=== PATIENT | male | born 1940 | race Caucasian/White ===

== ENCOUNTER 2018-08-28 06:51 | Day surgery (SDC) | payer MEDICARE, SELFPAY ==
[2018-07-19 14:56] VITALS: BMI 40.6
[2018-08-18 10:27] VITALS: BP 147/91; PULSE 73; RESP 18; TEMP 37.1; O2SAT 97; BMI 40.1
--- NOTE | 2018-08-18 10:57 | RAD_ITS ---
STUDY: X-RAY CHEST REASON FOR EXAM: Male, 77 years old. Preoperative evaluation. TECHNIQUE: PA and lateral views of the chest. COMPARISON: None. FINDINGS: Mild degree of increased linear markings at the left lung base with blunting of the left costophrenic angle. This may represent either linear atelectasis and/or early infiltrate. Normal size heart. Normal mediastinum and cahsidy. Normal visualized pulmonary arteries. There is atherosclerotic tortuosity of the aortic arch and descending thoracic aorta. There are diffuse degenerative changes of the visualized thoracic spine. Normal visualized ribs, clavicles, and shoulders. There is no demonstrated abnormality of the visualized soft tissue structures of the upper abdomen. RAD/Chest PA and Lateral IMPRESSION: Increased linear markings at the left lung base with blunting of the left costophrenic angle. This may represent underlying atelectasis and/or early infiltrate. Electronically Signed: Tereso Lockhart MD at 11:48 EST , Service support ,
[2018-08-18 11:28] LABS: Hematocrit 39.2 % (40-54); Hemoglobin 12.9 g/dl (13.0-16.5); Mean Corp Hgb Conc 32.9 g/gl (32-36); Mean Corpuscular Hgb 28.8 pg (27.0-32.0); Mean Corpuscular Volume 87.5 fL (80-94); Mean Platelet Vol. 9.2 fl (6.2-12.0); Platelet Count 170 K/mm3 (150-450); RBC Distribution Width CV 13.6 % (11.6-14.6); RBC Distribution Width SD 43.3 fl (35.1-43.9); Red Blood Count 4.48 M/mm3 (4.6-6.2); White Blood Count 9.2 K/mm3 (4.4-11.0)
[2018-08-18 11:31] LABS: Scan Indicated on CBC? Y/N NO
[2018-08-18 11:52] LABS: ALB/GLOB Ratio 0.8 RATIO (0.9-2.4); AST(SGOT) 19 U/L (15-37); Alanine Aminotransfer ALT/SGPT 24 U/L (16-61); Albumin, Serum 3.4 g/dL (3.2-5.0); Alkaline Phosphatase 104 U/L (45-117); Anion Gap 10 (5-15); BUN 16 mg/dL (7-18); BUN/Creat Ratio 12.3 RATIO (10-20); Calcium,Total 9.2 mg/dL (8.5-10.1); Chloride 106 mmol/L (98-107); EST Glomerular Filtration Rate 57 mL/min (>60); Est Glom Filt Rate - Afr Amer 69 mL/min (>60); Estimated Creatinine Clearance 45.31 ml/min; Globulin 4.2 g/dL (2.2-4.2); Glucose 104 mg/dL (74-106); Potassium 3.9 mmol/L (3.5-5.1); Protein, Total 7.6 g/dL (6.4-8.2); Sodium Level 141 mmol/L (136-145)
[2018-08-28] VITALS (7 sets, daily range): BP systolic 131–141; BP diastolic 71–91; PULSE 71–88; RESP 16–18; TEMP 36.3–37.3; O2SAT 92–100; BMI 40.5
--- NOTE | 2018-08-28 07:38 | DCINST_ITS ---
You will use the following diet at home:: Regular Discharge Activity: Return to Normal Activity, - - No Noseblowing Additional Activity Instructions:: Start saline irrigation 3x/day on 08/29/18. Allergies/Adverse Reactions: Allergies No Known Allergies Allergy (Verified 08/18/18 10:10) Medications to take at Discharge Atorvastatin Calcium 20 mg PO DAILY 02/15/17 amlodipine 10 mg tablet 10 mg PO DAILY 90 Days #90 tab 07/19/18 finasteride 5 mg tablet 5 mg PO DAILY 90 Days #90 tab 07/19/18 losartan 50 mg tablet 50 mg PO DAILY 90 Days #90 tab 07/19/18 tamsulosin 0.4 mg capsule 0.4 mg PO DAILY 90 Days #90 cap 07/19/18 Albuterol Inhaler [Ventolin Hfa (SP)] 1 - 2 puff INHALATION Q4H PRN PRN 08/18/18 Aspirin E.C. [Ecotrin] 81 mg PO DAILY@0800 08/18/18 Fluticasone/Salmeterol [Advair 250-50 Diskus] 1 puff IH BID 08/18/18 Primary Care Physician: Camryn Gutierrez NP-C [Primary Care Provider] - Test Results: Test results from this visit will be discussed in further detail at your follow- up appointment, if applicable.
--- NOTE | 2018-08-28 08:35 | SEP_PTH ---
PATIENT: OSVALDO CABRAL LOC: [facility] U#:[id number] AGE/SX: 77/M ROOM: RE08/28/[address]: Dr. Tito Kay MD : [id number] BED: DIS: 08/28/2018 SPEC #: [id number] RECD: 08/28/18 12:28 STATUS: ISIS BURAK #: [id number] AMNA: 08/28/18 08:[address]: Tito Kay DEPT: SURGICAL PATHOLOGY RECD BY: Suleman Johnston ENTERED: 08/28/18 13:12 SP TYPE: SEPTUM OTHR DR: Camryn Gutierrez, NIGHT COORDINATOR-C Tissues: A - Nasal septum, NOS B - Nasal turbinate, NOS Procedures: Decalcification bone/plaque Surgery Specimen Level III HEADER OPERATION: Septoplasty, anterior turbinates, bilateral lateral implants PRE-OP DIAGNOSIS: Deviated nasal septum, nasal congestion, hypertrophy of nasal turbinates TISSUE SUBMITTED: A - Septum, B - Turbinate contents MICROSCOPIC DIAGNOSIS A. Septum: Fragments of bone and cartilage, clinically deviated nasal septum. B. Turbinate contents: Fragments of fibrous tissue, detached and unoriented fragments of benign epithelium and blood clots. ANGELINA:efren 09/01/18 MICROSCOPIC DESCRIPTION Slides are reviewed. GROSS DESCRIPTION A - Received in fixative is one container labeled with the patient's name and designated septum. The specimen consists of multiple irregular fragments of light armenta-pink bone and cartilage that in aggregate measure 2.5 x 2 x 0.2 cm. The specimen is totally submitted in one cassette after decalcification. B - Received in fixative is one container labeled with the patient's name and designated turbinate contents. The specimen consists of irregular fragments of reddish-armenta gritty tissue measuring 1.2 x 0.6 x 0.3 cm. The specimen is submitted in its entirety in one cassette after decalcification. / AM:efren 08/28/18 TC:5 CPT: 16662 x2, 52069 x2
[2018-08-28] MEDS: Oxymetazoline 0.05% 1 SPRAY SPRAY.BTL 15 SPRAY (08:55)
[2018-08-28] MEDS: Mupirocin Ointment 22gm Tube 1 APPLIC (09:07)
--- NOTE | 2018-08-28 10:04 | PCM.OPRPT ---
Report of Operation Date of Procedure: 08/28/18 Pre-Operative Diagnosis: nasal airway obstruction. deviated septum. external nasal valve collapse Post-Operative Diagnosis: same Surgery/Procedure Performed:: Septoplasty. Bilateral reconstruction of lateral nasal wall (external valve) with latera implant. Bilateral submucous resection inferior turbinates Type of Anesthesia:: General Anesthesiologist: Bassem Malone Specimen's removed: septum. turbinate contents Estimated Blood Loss (mL): minimal Description of Procedure: The patient was taken to the OR on 08/28/18. He was placed in the supine position on the OR table. He was given sufficient general endotracheal anesthesia. The head of bed was elevated 30 degrees. The nose and face were prepped and draped steriley. I injected 1% lidocaine with epinephrine (1:[id number]) into the septum, nasal floor, columella, and external nasal valve area. Vibrissae were trimmed with scissors. I then made a hemitransfixtion incision on the right with a 15 blade. Sharp dissection was used to establish a plane on the left mucopericondrium. The mucoperichondrium was elevated off of the septum with a freer elevator. In this way, an anterior and posterior tunnel was created. The francisco cartilaginous junction was and a posterior tunnel was created on the right side by elevating the mucoperichondrium off of the septum. Deviated portions of the francisco septum were removed with open Eulogio-Larry forceps. The cartilage was removed from the crest. The maxillary crest was taken down using a hammer and chisel. I then scored the remaining quandrangular cartilage with a 15 blade. Suction cautery was used for hemostasis on the maxillary crest. Afrin and estefani were used for hemostasis. Next, I made a stab incision at the anterior aspect of the right inferior turbinate at the mucocutaneous junction with a 15 blade. I then submucosally dissected a plane with a [place] elevator. Submucous resection was carried out using a microdebrider. Afrin and estefani were used for hemostasis and the incision was closed with 4-0 chromic. I then made a stab incision at the anterior aspect of left the inferior turbinate at the mucocutaneous junction with a 15 blade. I then submucosally dissected a plane with a Jacobo elevator. Submucous resection was carried out using a microdebrider. Afrin and estefani were used for hemostasis and the incision was closed with 4-0 chromic. I then loaded the Latera implant per the instructions. I outlined the superior and inferior position on the right taking care to keep the inferior most portion above the alar crease. I then dissected the latera needle lateral to the lower lateral cartilage and dissected superiorly on the upper lateral cartilage and bone until in the correct position. The implant was deployed. I then held the implant while the needle was slowly removed. I re inspected the injection site and there was no implant visible. I then loaded the Latera implant per the instructions. I outlined the superior and inferior position on the left taking care to keep the inferior most portion above the alar crease. I then dissected the latera needle lateral to the lower lateral cartilage and dissected superiorly on the upper lateral cartilage and bone until in the correct position. The implant was deployed. I then held the implant while the needle was slowly removed. I re inspected the injection site and there was no implant visible. I then reassured that I had excellent hemostasis. The hemitransfixtion incision was closed with interrupted 4-0 chromic. Mesa nasal splints were applied to each side of the septum and sewn through and through with 3-0 silk. The procedure was terminated. He was awoken and brought to the recovery room in stable condition. Blood loss minimal, replacement none. Sponge, needle and instrument count were correct at the end of the procedure. Grafts/Implants Used: bilateral latera
== END 2018-08-28 11:36 | disposition home or self-care (01) ==
LOC: SDC 06:52 → AC 06:52
PROVIDERS: Family Provider Nurse Practitioner Adult Health; PCP Nurse Practitioner Adult Health; Referring Provider Otolaryngology; Visit Provider Otolaryngology
PROC: (CPT 30520; principal; 2018-08-28 08:20)
DX: J34.2 Deviated nasal septum (principal); J34.3 Hypertrophy of nasal turbinates; J34.89 Other specified disorders of nose and nasal sinuses; I10 Essential (primary) hypertension; E78.00 Pure hypercholesterolemia, unspecified; N40.0 Benign prostatic hyperplasia without lower urinary tract symptoms; R73.03 Prediabetes; Z86.718 Personal history of other venous thrombosis and embolism; Z79.82 Long term (current) use of aspirin; Z79.899 Other long term (current) drug therapy; Z87.891 Personal history of nicotine dependence
CPT/HCPCS: 00160; 30140; 30465; 30520; 36415; 71046; 80053; 85027; 88304; 88311; J7120; J2405

== ENCOUNTER 2018-08-30 18:23 | Observation (INO) | payer MEDICARE, SELFPAY ==
[2018-08-28 07:09] VITALS: BMI 40.5
[2018-08-30] VITALS (7 sets, daily range): BP systolic 115–147; BP diastolic 62–84; PULSE 76–84; RESP 12–24; TEMP 30.9–36.7; O2SAT 95–96; BMI 40.6; BMI 41.3; BMI 41.4
--- NOTE | 2018-08-30 18:39 | EKG12_ITS ---
Test Reason : SOB Blood Pressure : / mmHG Vent. Rate : 071 BPM Atrial Rate : 071 BPM P-R Int : 190 ms QRS Dur : 090 ms QT Int : 400 ms P-R-T Axes : 011 -04 021 degrees QTc Int : 434 ms Normal sinus rhythm Inferior infarct , age undetermined Abnormal ECG Confirmed by ROCHELLE RICO, REGIS ([id number]), editor index MARILYNN ESCOBAR ([id number]) on 09/04/2018 10:09:34 AM Referred By: Dereck Sorenson Confirmed By:REGIS BYRD MD
[2018-08-30] MEDS: Ipratropium/Albuterol Sulfate 3 ML AMPUL.NEB INHALATION (18:55)
[2018-08-30] MEDS: Albuterol 2.5 MG/3 ML VIAL.NEB. INHALATION ×3 (18:55→19:12)
[2018-08-30 19:08] LABS: Absolute Lymphocyte Count 1.31 X10^3/ul (0.83-4.51); Absolute Neutrophil Count 5.3 X10^3/uL (2.0-7.7); Basophil# 0.06 X10^3/uL; Basophil% 0.8 % (0-1); Eosinophil# 0.38 X10^3/uL; Eosinophils% 4.9 % (0-5); Hematocrit 36.7 % (40-54); Hemoglobin 11.8 g/dl (13.0-16.5); Lymphocyte # 1.31 X10^3/ul (4.0); Lymphocyte % 16.8 % (19-41); Mean Corp Hgb Conc 32.2 g/gl (32-36); Mean Corpuscular Hgb 28.4 pg (27.0-32.0); Mean Corpuscular Volume 88.4 fL (80-94); Mean Platelet Vol. 8.7 fl (6.2-12.0); Monocyte% 7.7 % (0-10); Neutrophil # 5.34 X10^3/uL (2.7-7.7); Neutrophil % 68.1 % (47-70); Platelet Count 149 K/mm3 (150-450); RBC Distribution Width CV 13.8 % (11.6-14.6); RBC Distribution Width SD 44.8 fl (35.1-43.9); Red Blood Count 4.15 M/mm3 (4.6-6.2); White Blood Count 7.8 K/mm3 (4.4-11.0)
--- NOTE | 2018-08-30 19:10 | ED.VISSUMM ---
- ER Visit Summary Date of Service: 08/30/18 Chief Complaint: Shortness of breath History of Present Illness: The patient is a 77 M who is postop day 2 from nasal surgery with Dr. Marie. Patient has a history of COPD. For this he takes Advair and has a rescue inhaler of ProAir air. Family states he rarely has to use his rescue inhaler. Starting today has been increasingly short of breath. They have heard wheezing. He notes a slight cough. No change in the swelling of his ankles. No fevers. Patient does not wear oxygen at home. He does not have nebulizer machine. Physical Examination: Afebrile vital signs are stable Gen: Well-nourished well-developed obese Head: Normocephalic atraumatic Eyes: Perrl EOMI ENT: TMs clear postoperative nasal changes moist mucous membranes Neck: Supple no lymphadenopathy no JVD nontender CVS: Regular rate rhythm no murmurs normal S1-S2 Respiratory: Patient has conversational dyspnea. He has significantly diminished breath sounds bilaterally. There is faint expiratory wheezing. Chest nontender Abdomen: Soft nontender nondistended normal bowel sounds no masses Back: Nontender Extremity: Nontender 2+ symmetric lower extremity edema Skin: Normal color no rash Neuro: alert orientated ?3 CN II-XII intact normal strength sensation Psych: Normal affect normal mood Test Results: [] Emergency Department Course and Treatment: [] Impression: [] This note was generated with [employer] dictation software. It may contain incorrect words, spelling, and punctuation that were not noted in review of the chart prior to signing ED Disposition - Plan for ED Patient: Referrals: Camryn Gutierrez NP-C [Primary Care Provider] -
[2018-08-30 19:11] LABS: POSITIVE COUNT NO; POSITIVE DIFFERENTIAL NO; POSITIVE MORPHOLOGY NO
[2018-08-30 19:20] LABS: Anion Gap 7 (5-15); BUN 25 mg/dL (7-18); BUN/Creat Ratio 18.1 RATIO (10-20); Calcium,Total 8.4 mg/dL (8.5-10.1); Chloride 108 mmol/L (98-107); Creatinine, Serum 1.38 mg/dL (0.70-1.30); EST Glomerular Filtration Rate 53 mL/min (>60); Est Glom Filt Rate - Afr Amer 64 mL/min (>60); Estimated Creatinine Clearance 42.68 ml/min; Glucose 167 mg/dL (74-106); Potassium 3.8 mmol/L (3.5-5.1); Sodium Level 140 mmol/L (136-145)
[2018-08-30] MEDS: MethylPREDNISolone 125 MG/2 ML Vial IV (19:22)
--- NOTE | 2018-08-30 19:35 | RAD_ITS ---
STUDY: X-RAY CHEST REASON FOR EXAM: Male, 77 years old. Shortness of breath. TECHNIQUE: PA and lateral views of the chest. COMPARISON: August 18, 2018. FINDINGS: Telemetry wires overlie the chest. The lungs are clear and expanded. There is no demonstrated pleural abnormality. Normal size heart. Normal mediastinum and chasidy. Normal visualized pulmonary arteries. Normal visualized aortic arch and descending thoracic aorta. Normal visualized thoracic spine. Normal visualized ribs, clavicles, and shoulders. There is no demonstrated abnormality of the visualized soft tissue structures of the upper abdomen. RAD/Chest PA and Lateral IMPRESSION: No acute cardiopulmonary disease. Electronically Signed: Jluis Go DO at 20:03 EST Tel [phone], Service support ,
--- NOTE | 2018-08-30 20:45 | ED.RN ---
PATIENT WAS TOLD BY THE DR. MIN THAT PATIENT COULD TAKE HIS OWN SECOND DOSE OF HIS ANTI BIOTIC (AMOXICILLIN) HIS DAUGHTER WAS GOING TO GIVE IT TO HIM.
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
[2018-08-31] VITALS (8 sets, daily range): BP systolic 136–156; BP diastolic 73–84; PULSE 72–96; RESP 18–22; TEMP 36.7–36.9; O2SAT 94–96
[2018-08-31 06:25] LABS: Anion Gap 10 (5-15); BUN 24 mg/dL (7-18); BUN/Creat Ratio 16.6 RATIO (10-20); Calcium,Total 8.4 mg/dL (8.5-10.1); Chloride 107 mmol/L (98-107); Creatinine, Serum 1.45 mg/dL (0.70-1.30); EST Glomerular Filtration Rate 50 mL/min (>60); Est Glom Filt Rate - Afr Amer 60 mL/min (>60); Estimated Creatinine Clearance 40.62 ml/min; Glucose 174 mg/dL (74-106); Potassium 4.3 mmol/L (3.5-5.1); Sodium Level 138 mmol/L (136-145)
[2018-08-31 06:33] LABS: Absolute Lymphocyte Count 0.43 X10^3/ul (0.83-4.51); Absolute Neutrophil Count 7.2 X10^3/uL (2.0-7.7); Basophil# 0.02 X10^3/uL; Basophil% 0.3 % (0-1); Eosinophil# 0.01 X10^3/uL; Eosinophils% 0.1 % (0-5); Hemoglobin 11.8 g/dl (13.0-16.5); Lymphocyte # 0.43 X10^3/ul (4.0); Lymphocyte % 5.4 % (19-41); Mean Corp Hgb Conc 32.8 g/gl (32-36); Mean Corpuscular Hgb 29.1 pg (27.0-32.0); Mean Corpuscular Volume 88.9 fL (80-94); Mean Platelet Vol. 9.7 fl (6.2-12.0); Monocyte# 0.12 X10^3/uL; Monocyte% 1.5 % (0-10); Neutrophil # 7.24 X10^3/uL (2.7-7.7); Neutrophil % 90.7 % (47-70); Platelet Count 180 K/mm3 (150-450); RBC Distribution Width CV 13.4 % (11.6-14.6); RBC Distribution Width SD 42.7 fl (35.1-43.9); Red Blood Count 4.05 M/mm3 (4.6-6.2)
[2018-08-31 06:36] LABS: Differential Indicated SCAN CRITERIA MET; POSITIVE COUNT YES; POSITIVE DIFFERENTIAL YES; POSITIVE MORPHOLOGY YES
[2018-08-31] MEDS: Ipratropium/Albuterol Sulfate 3 ML AMPUL.NEB INHALATION ×3 (07:20→14:45)
[2018-08-31] MEDS: Tamsulosin HCl 0.4 MG Capsule PO (08:04)
[2018-08-31] MEDS: Finasteride 5 MG Tablet PO (08:04)
[2018-08-31] MEDS: amLODIPine 10 MG Tablet PO (08:04)
[2018-08-31] MEDS: Losartan Potassium 50 MG Tablet PO (08:04)
[2018-08-31] MEDS: 0.9% NaCl Peripheral Flush Adult/Peds IV ×3 (08:08→21:46)
[2018-08-31] MEDS: AMOXICILLIN 875 MG TABLET PO ×2 (10:59→21:42)
[2018-08-31 12:35] LABS: Pathologist Review Reviewed
--- NOTE | 2018-08-31 13:42 | PCM.PROGNOTE ---
<Roman Hughes - Last Filed: 08/31/18 13:42> Patient Problems: Active and Suspected Problems (Last Reviewed 08/30/18 @ 23:17 by Dereck Sorenson MD) COPD with exacerbation (Acute) Subjective: Pt feels he is improving. He has less SOB, no cough, no fever. He has ambulated without oxygen and without desat. Still some exertional dyspnea. He has a mild tremor in his right hand but states this is not new. - Physical Exam General: Alert, Oriented x3, Cooperative HEENT: Atraumatic, PERRLA, EOMI, Normocephalic Neck: Supple, No JVD, Negative Carotid Bruits Lungs: Diminished Cardiovascular: Regular rate, No murmurs Abdomen: Bowel Sounds Present, Soft, Non Tender Extremities: No edema, Capillary Refill Less than 3 Seconds Skin: No rashes, No breakdown Musculoskeletal: No Tenderness to Palpation of Joints or Extremities Neurological: Cranial nerves II-XII grossly intact Psych/Mental Status: Normal Affect, Appropriate, Alert and oriented to time, place, person, mood and affect Vital Signs Temp Pulse Resp BP Pulse Ox 98.0 F 94 18 156/84 H 96 08/31/18 08:00 08/31/18 11:07 08/31/18 11:07 08/31/18 08:00 08/31/18 08:00 Oxygen Delivery Method Room Air Weight: 272 lb 3 oz Body Mass Index (BMI) 41.3 Intake and Output for Last 24 Hours 08/29/18 08/30/18 08/31/18 23:59 23:59 23:59 Intake Total 1200 / 1200 Output Total 1100 / 1100 Balance 100 / 100 Laboratory Tests Past 24 Hrs 08/30/18 08/30/18 08/31/18 18:55 18:55 05:24 WBC 7.8 8.0 RBC 4.15 L 4.05 L Hgb 11.8 L 11.8 L Hct 36.7 L 36.0 L MCV 88.4 88.9 MCH 28.4 29.1 MCHC 32.2 32.8 RDW 13.8 13.4 RDW Differential 44.8 H 42.7 Plt Count 149 L 180 MPV 8.7 9.7 Immature Gran % (Auto) 1.700 H 2.000 H Neut % (Auto) 68.1 90.7 H Lymph % (Auto) 16.8 L 5.4 L Charles % (Auto) 7.7 1.5 Eos % (Auto) 4.9 0.1 Baso % (Auto) 0.8 0.3 Absolute Neuts (auto) 5.3 7.2 Absolute Lymphs (auto) 1.31 0.43 L Total Counted Not Reportable Not Reportable Diff Path Review Reviewed Sodium 140 Potassium 3.8 Chloride 108 H Carbon Dioxide 25.0 Anion Gap 7 BUN 25 H Creatinine 1.38 H Estim Creat Clear Calc 42.68 Est GFR (MDRD) Af Amer 64 Est GFR (MDRD) Non-Af 53 L BUN/Creatinine Ratio 18.1 Glucose 167 H Calcium 8.4 L Troponin I 0.021 08/31/18 05:24 WBC RBC Hgb Hct MCV MCH MCHC RDW RDW Differential Plt Count MPV Immature Gran % (Auto) Neut % (Auto) Lymph % (Auto) Charles % (Auto) Eos % (Auto) Baso % (Auto) Absolute Neuts (auto) Absolute Lymphs (auto) Total Counted Diff Path Review Sodium 138 Potassium 4.3 Chloride 107 Carbon Dioxide 21.0 Anion Gap 10 BUN 24 H Creatinine 1.45 H Estim Creat Clear Calc 40.62 Est GFR (MDRD) Af Amer 60 Est GFR (MDRD) Non-Af 50 L BUN/Creatinine Ratio 16.6 Glucose 174 H Calcium 8.4 L Troponin I Medical Necessity - Tobacco Use Smoking Status: Former smoker Assessment/Plan All Active Problems (Last Reviewed 08/30/18 @ 23:17 by Dereck Sorenson MD) COPD with exacerbation (Acute) 1. Acute COPD exacerbation-no further wheezing, ambulatory without desaturation. Continue current therapies plan for discharge tomorrow. Add incentive spirometer 2. Nasal collapse status post stenting-on amoxicillin at home, continue this. Follow-up with ENT. 3. Hypertension-stable 4. CKD stage III-bumped, recheck in a.m. 5. BPH - flomax, finasteride. 6. Morbid obesity - dietary eval DVT ppx: SCDs DC planning: likely home tomorrow if he remains stable. This patient was seen by Roman Hughes PA-C under the supervision of Doctor Miladis. <Octaviano Redding - Last Filed: 02/07/19 14:38> - Physical Exam Vital Signs Temp Pulse Resp BP Pulse Ox 98.1 F 96 18 147/73 H 94 08/31/18 14:20 08/31/18 14:20 08/31/18 14:20 08/31/18 14:20 08/31/18 14:20 Oxygen Delivery Method Room Air Weight: 272 lb 3 oz Body Mass Index (BMI) 41.3 Intake and Output for Last 24 Hours 08/29/18 08/30/18 08/31/18 23:59 23:59 23:59 Intake Total 1200 / 1200 Output Total 1100 / 1100 Balance 100 / 100 Laboratory Tests Past 24 Hrs 08/30/18 08/30/18 08/31/18 18:55 18:55 05:24 WBC 7.8 8.0 RBC 4.15 L 4.05 L Hgb 11.8 L 11.8 L Hct 36.7 L 36.0 L MCV 88.4 88.9 MCH 28.4 29.1 MCHC 32.2 32.8 RDW 13.8 13.4 RDW Differential 44.8 H 42.7 Plt Count 149 L 180 MPV 8.7 9.7 Immature Gran % (Auto) 1.700 H 2.000 H Neut % (Auto) 68.1 90.7 H Lymph % (Auto) 16.8 L 5.4 L Charles % (Auto) 7.7 1.5 Eos % (Auto) 4.9 0.1 Baso % (Auto) 0.8 0.3 Absolute Neuts (auto) 5.3 7.2 Absolute Lymphs (auto) 1.31 0.43 L Total Counted Not Reportable Not Reportable Diff Path Review Reviewed Sodium 140 Potassium 3.8 Chloride 108 H Carbon Dioxide 25.0 Anion Gap 7 BUN 25 H Creatinine 1.38 H Estim Creat Clear Calc 42.68 Est GFR (MDRD) Af Amer 64 Est GFR (MDRD) Non-Af 53 L BUN/Creatinine Ratio 18.1 Glucose 167 H Calcium 8.4 L Troponin I 0.021 08/31/18 05:24 WBC RBC Hgb Hct MCV MCH MCHC RDW RDW Differential Plt Count MPV Immature Gran % (Auto) Neut % (Auto) Lymph % (Auto) Charles % (Auto) Eos % (Auto) Baso % (Auto) Absolute Neuts (auto) Absolute Lymphs (auto) Total Counted Diff Path Review Sodium 138 Potassium 4.3 Chloride 107 Carbon Dioxide 21.0 Anion Gap 10 BUN 24 H Creatinine 1.45 H Estim Creat Clear Calc 40.62 Est GFR (MDRD) Af Amer 60 Est GFR (MDRD) Non-Af 50 L BUN/Creatinine Ratio 16.6 Glucose 174 H Calcium 8.4 L Troponin I Code Visit Addendum: Dr. Redding I personally examined the patient and reviewed the chart. I agree with the above. 77-year-old male presenting with a COPD exacerbation. Currently doing well off oxygen however he would like to stay 1 more day to go receive some more IV steroids. We will plan on discharge tomorrow on p.o. steroids as well as inhalers. OBSV E&M: 22565 Subsequent observation care L2
[2018-08-31] MEDS: Atorvastatin Calcium 20 MG Tablet PO (21:42)
[2018-09-01] VITALS: O2SAT 94
[2018-09-01 02:20] VITALS: BP 145/79; PULSE 67; RESP 18; TEMP 36.5; O2SAT 95
[2018-09-01 05:53] VITALS: O2SAT 95
[2018-09-01] MEDS: 0.9% NaCl Peripheral Flush Adult/Peds IV (05:55)
[2018-09-01 06:29] LABS: Anion Gap 11 (5-15); BUN 28 mg/dL (7-18); BUN/Creat Ratio 23.3 RATIO (10-20); Calcium,Total 8.7 mg/dL (8.5-10.1); Chloride 109 mmol/L (98-107); EST Glomerular Filtration Rate 62 mL/min (>60); Est Glom Filt Rate - Afr Amer 75 mL/min (>60); Estimated Creatinine Clearance 49.08 ml/min; Glucose 177 mg/dL (74-106); Potassium 4.3 mmol/L (3.5-5.1); Sodium Level 140 mmol/L (136-145)
[2018-09-01 07:25] VITALS: PULSE 89; RESP 20
[2018-09-01] MEDS: Ipratropium/Albuterol Sulfate 3 ML AMPUL.NEB INHALATION (07:25)
[2018-09-01] MEDS: AMOXICILLIN 875 MG TABLET PO (07:36)
--- NOTE | 2018-09-01 09:25 | DCINST_ITS ---
- Discharge Diagnoses Current Active Problems: Current Active and Chronic Problems (Last Reviewed 08/30/18 @ 23:17 by Dereck Sorenson MD) COPD with exacerbation (Acute) You will use the following diet at home:: Cardiac Your food should be the consistency of: Regular Your liquids should be the consistency of: Regular/Thin Discharge Activity: Return to Normal Activity Call your doctor if you observe: Fever of 101 or Higher, Shortness of breath, Dizziness, Fainting spells, Chest pain Allergies/Adverse Reactions: Allergies No Known Allergies Allergy (Verified 08/30/18 18:25) Medications to take at Discharge Atorvastatin Calcium 20 mg PO DAILY 02/15/17 finasteride 5 mg tablet 5 mg PO DAILY 90 Days #90 tab 07/19/18 losartan 50 mg tablet 50 mg PO DAILY 90 Days #90 tab 07/19/18 tamsulosin 0.4 mg capsule 0.4 mg PO DAILY 90 Days #90 cap 07/19/18 Albuterol Inhaler [Ventolin Hfa] 1 - 2 puff INHALATION Q4H PRN PRN 08/18/18 Aspirin E.C. [Ecotrin] 81 mg PO DAILY@0800 08/18/18 Fluticasone/Salmeterol [Advair 250-50 Diskus] 1 puff IH BID 08/18/18 Amlodipine Besylate 10 mg PO DAILY 08/30/18 Amoxicillin 1 tab PO BID 08/30/18 Hydrocodone/Acetaminophen [Hydrocodone-Acetamin 5-325 mg] 1 tab PO Q6H PRN PRN 08/30/18 Prednisone [Deltasone] 40 mg PO DAILY #14 tablet 09/01/18 The following prescriptions were given: Prednisone [Deltasone] 40 mg PO DAILY #14 tablet Primary Care Physician: Camryn Gutierrez NP-C [Primary Care Provider] - Please follow up with your Primary Care Physician in: 3-5 days Test Results: Test results from this visit will be discussed in further detail at your follow- up appointment, if applicable.
--- NOTE | 2018-09-01 09:25 | PCM.DC.SUM ---
Discharge Date and Diagnosis - Problem List Patient Problems: Active and Suspected Problems (Last Reviewed 08/30/18 @ 23:17 by Dereck Sorenson MD) COPD with exacerbation (Acute) Date of Admission: 08/30/18 Date of Discharge: 09/01/18 - Primary Discharge Diagnosis Active and Suspected Problems (Last Reviewed 08/30/18 @ 23:17 by Dereck Sorenson MD) COPD with exacerbation (Acute) - Secondary Discharge Diagnosis Chronic Problems (Last Reviewed 08/30/18 @ 23:17 by Dereck Sorenson MD) BPH (benign prostatic hyperplasia) (Chronic) COPD (chronic obstructive pulmonary disease) (Chronic) Hypertension (Chronic) Hyperlipidemia (Chronic) Hospital Course and Treatment Imaging Results: CXR: IMPRESSION: No acute cardiopulmonary disease. Consults: None Operations: None Procedures: None Summary of Care Provided: Per HPI: The patient is a 77 year old M with a significant history of former smoker; COPD; CKD stage III BPH; and hypertension who presented with progressively worsening wheezing that started about 3 days ago. Associated with his symptoms is difficulty breathing. Patient reports that he had a bilateral stent placed in his nose because of a collapse of his nose. The stent was placed in by Dr. Marie on 08/28/2018. Patient is on pain medication and antibiotics because of the bilateral nasal stents.. Patient thinks that his difficulty in breathing is from the stent that was placed in his nose. At the emergency department patient oxygen saturation dropped from 96% to 89% on room air and with ambulation. Emergency department doctor reported wheezing on examination. Patient reports cough; and yellow to white sputum which is unchanged from his baseline. He has dark crusted bloody discharge from his nose that he attributes to the stent placement. At home he is on Advair and rescue inhaler. He does not typically uses his rescue inhaler. However in the last few days he has been using his rescue inhalers repeatedly. Hospital Course: 1. Acute COPD exacerbation/nasal collapse status [id number]old male who is a former smoker in the presenting with a COPD exacerbation. He also states that he recently had bilateral nose nasal stents placed for collapse of his nose. He is on amoxicillin for the stents. On admission he was found to be wheezing and coughing. He was started on breathing treatments as well as steroids. Yesterday he was ambulating in the hallway without oxygen and did not have any desaturations and so today he is demanding to go home. He is still tight and has poor air movement however his wheezing has significantly improved. We will plan for discharge with 7 days of prednisone 40 mg. Is also to follow-up with his PCP. I discussed with him that his albuterol inhaler can be used with 4-6 puffs every 4 hours over the next couple of days until the steroids truly take effect, and that this dosing regimen is similar to nebulizer treatment. 2. His other medical diagnoses were evaluated and his home medications were continued where appropriate Patient Problems: Active and Suspected Problems (Last Reviewed 08/30/18 @ 23:17 by Dereck Sorenson MD) COPD with exacerbation (Acute) - Physical Exam General: Alert, Oriented x3, Cooperative, No apparent distress HEENT: Atraumatic, EOMI, Normocephalic Oral: Moist Mucosa Neck: Supple, No JVD, Trachea Midline Lungs: Diminished, Wheezes - Slight, - - poor air movement Cardiovascular: Regular rate, Regular Rhythm, Normal S1, Normal S2, No murmurs Abdomen: Soft, Non Tender, Non-Distended, No Hepato-splenomegaly Extremities: No edema, Capillary Refill Less than 3 Seconds Skin: No rashes, No breakdown Neurological: Neuro grossly intact, Sensory exam intact to light touch and pain Psych/Mental Status: Normal Affect, Appropriate Vital Signs Temp Pulse Resp BP Pulse Ox 97.7 F L 67 18 145/79 H 95 09/01/18 02:20 09/01/18 02:20 09/01/18 02:20 09/01/18 02:20 09/01/18 05:53 Oxygen Delivery Method Room Air Weight: 272 lb 2.923 oz Body Mass Index (BMI) 41.3 Intake and Output for Last 24 Hours 08/30/18 08/31/18 09/01/18 23:59 23:59 23:59 Intake Total 1500 / 1500 400 / 400 Output Total 1925 / 1925 1900 / 1900 Balance -425 / -425 -1500 / -1500 Laboratory Tests Past 24 Hrs 08/31/18 09/01/18 05:24 05:26 Diff Path Review Reviewed Sodium 140 Potassium 4.3 Chloride 109 H Carbon Dioxide 20.0 L Anion Gap 11 BUN 28 H Creatinine 1.20 Estim Creat Clear Calc 49.08 Est GFR (MDRD) Af Amer 75 Est GFR (MDRD) Non-Af 62 BUN/Creatinine Ratio 23.3 H Glucose 177 H Calcium 8.7 Discharge Activity: Return to Normal Activity Call your doctor if you observe: Fever of 101 or Higher, Shortness of breath, Dizziness, Fainting spells, Chest pain Home Medications: Medications to take at Discharge Atorvastatin Calcium 20 mg PO DAILY 02/15/17 finasteride 5 mg tablet 5 mg PO DAILY 90 Days #90 tab 07/19/18 losartan 50 mg tablet 50 mg PO DAILY 90 Days #90 tab 07/19/18 tamsulosin 0.4 mg capsule 0.4 mg PO DAILY 90 Days #90 cap 07/19/18 Albuterol Inhaler [Ventolin Hfa] 1 - 2 puff INHALATION Q4H PRN PRN 08/18/18 Aspirin E.C. [Ecotrin] 81 mg PO DAILY@0800 08/18/18 Fluticasone/Salmeterol [Advair 250-50 Diskus] 1 puff IH BID 08/18/18 Amlodipine Besylate 10 mg PO DAILY 08/30/18 Amoxicillin 1 tab PO BID 08/30/18 Hydrocodone/Acetaminophen [Hydrocodone-Acetamin 5-325 mg] 1 tab PO Q6H PRN PRN 08/30/18 Prednisone [Deltasone] 40 mg PO DAILY #14 tablet 09/01/18 Following Prescrptions Were Given to Patient: Prednisone [Deltasone] 40 mg PO DAILY #14 tablet Primary Care Physician: Camryn Gutierrez NP-C [Primary Care Provider] - Please follow up with your Primary Care Physician in: 3-5 days Disposition: Home Minutes spent on discharge:: 35 Patient Condition:: Stable Medical Necessity - Tobacco Use Smoking Status: Former smoker Meaningful Use Info Meaningful Use Diagnoses (Choose all that apply): None applicable Code Visit OBSV E&M: 90754 Observation care discharge
[2018-09-01 09:31] VITALS: BP 156/82; PULSE 83; RESP 20; TEMP 36.7; O2SAT 98
[2018-09-01] MEDS: Finasteride 5 MG Tablet PO (09:35)
[2018-09-01] MEDS: Losartan Potassium 50 MG Tablet PO (09:35)
[2018-09-01] MEDS: Tamsulosin HCl 0.4 MG Capsule PO (09:35)
[2018-09-01] MEDS: amLODIPine 10 MG Tablet PO (09:35)
[2018-09-01 10:36] VITALS: BP 148/78; PULSE 78; RESP 18; TEMP 36.7; O2SAT 97
== END 2018-09-01 11:15 | disposition home or self-care (01) ==
LOC: ED 18:53 → MS3 21:31
PROVIDERS: Physician Assistant; Admitting Provider Hospitalist; Emergency Provider Emergency Medicine; Family Provider Nurse Practitioner Adult Health; PCP Nurse Practitioner Adult Health; Referring Provider Hospitalist; Visit Provider Family Medicine
DX: J44.1 Chronic obstructive pulmonary disease with (acute) exacerbation (principal); E78.5 Hyperlipidemia, unspecified; N40.0 Benign prostatic hyperplasia without lower urinary tract symptoms; I12.9 Hypertensive chronic kidney disease with stage 1 through stage 4 chronic kidney disease, or unspecified chronic kidney disease; N18.3 Chronic kidney disease, stage 3 (moderate); M95.0 Acquired deformity of nose; E66.01 Morbid (severe) obesity due to excess calories; Z68.41 Body mass index [BMI] 40.0-44.9, adult; Z79.899 Other long term (current) drug therapy; Z79.82 Long term (current) use of aspirin; Z87.891 Personal history of nicotine dependence; Z71.3 Dietary counseling and surveillance
CPT/HCPCS: 36415; 71046; 80048; 84484; 85025; 93005; 94640; 96374; 96376; 97162; 97166; 97802; 99218; 99283; A4216; G0378